=== PATIENT | female | born 1970 | race Caucasian/White ===

== ENCOUNTER 2021-08-14 16:53 | Emergency (ER) | payer BC ==
[2021-08-14] MEDS ORDERED: Dexamethasone 10 MG/ML SDV PO ONE (17:52)
[2021-08-14 18:45] LABS: CORONAVIRUS COVID-19 NAA NEGATIVE (NEGATIVE); INFLUENZA A NAA NEGATIVE (NEGATIVE); INFLUENZA B NAA NEGATIVE (NEGATIVE)
== END 2021-08-14 18:56 | disposition home or self-care (01) ==
LOC: MW.ED 16:53
DX: H10.9 Unspecified conjunctivitis (principal); J06.9 Acute upper respiratory infection, unspecified; B34.9 Viral infection, unspecified; J04.0 Acute laryngitis; J03.90 Acute tonsillitis, unspecified; Z20.822 Contact with and (suspected) exposure to COVID-19; Z91.048 Other nonmedicinal substance allergy status
CPT/HCPCS: 0240U; 87651; 99283; J8540